=== PATIENT | male | born 1955 | race Caucasian/White ===

== ENCOUNTER 2018-06-25 08:39 | Inpatient (IN) | payer MEDICARE, BC ==
[~2018-06-25] VITALS: Ht 188 cm; Wt 109.8 kg
[2018-06-25] VITALS (14 sets, daily range): BP systolic 123–152; BP diastolic 65–99
[2018-06-25] MEDS ORDERED: IV NORMAL SALINE 1000 ML BAG IV ONE (09:00)
[2018-06-25 09:13] LABS: BASOPHILS # (AUTO) 0.1 K/uL (0.0-8.0); BASOPHILS % (AUTO) 0.6 % (0.0-2.0); EOSINOPHILS # (AUTO) 0.2 K/uL (0.0-0.7); EOSINOPHILS % (AUTO) 2.4 % (0.0-7.0); HEMATOCRIT 41.5 % (36.7-47.1); HEMOGLOBIN 13.6 g/dL (12.5-16.3); LYMPHOCYTES # (AUTO) 0.6 K/uL (20.0-40.0); LYMPHOCYTES % (AUTO) 7.1 % (20.5-51.5); MEAN CORPUSCULAR HEMOGLOBIN 29.8 uug (23.8-33.4); MEAN CORPUSCULAR HGB CONC 33 g/dL (32.5-36.3); MEAN CORPUSCULAR VOLUME 91.2 fL (73.0-96.2); MONOCYTES % (AUTO) 11.3 % (0.0-11.0); NEUTROPHILS # (AUTO) 7.2 K/uL (1.8-8.9); NEUTROPHILS % (AUTO) 78.6 % (38.5-71.5); PLATELET COUNT (AUTO) 337 K/uL (152-348); RED BLOOD CELL COUNT(AUTO) 4.55 MIL/uL (4.06-5.63); WHITE BLOOD COUNT (AUTO) 9.1 K/uL (3.6-10.2)
[2018-06-25 09:28] LABS: ALANINE AMINOTRANSFERASE 34 U/L (16-63); ALKALINE PHOSPHATASE 86 U/L (50-136); ASPARTATE AMINOTRANSFERASE 8 U/L (15-37); BILIRUBIN,DIRECT 0.2 mg/dL (0.0-0.2); BILIRUBIN,TOTAL 0.6 mg/dL (0.2-1.0); CARBON DIOXIDE 16 mmol/L (21-32); CHLORIDE 102 mmol/L (98-107); CREATININE 0.5 mg/dL (0.6-1.3); GLUCOSE 127 mg/dL (74-106); LIPASE 892 U/L (73-393); POTASSIUM 3.5 mmol/L (3.5-5.1); TOTAL PROTEIN, SERUM 7.3 g/dL (6.4-8.2); UREA NITROGEN, BLOOD 12 mg/dL (7-18)
[2018-06-25] MEDS ORDERED: DILTIAZEM HCL 25 MG IV IV ONE (09:30)
[2018-06-25] MEDS ORDERED: KETOROLAC TROMETHAMINE 30 MG INJ IVP ONE (09:30)
[2018-06-25] MEDS ORDERED: KETOROLAC TROMETHAMINE 30 MG INJ ONE (09:34)
[2018-06-25] MEDS ORDERED: DILTIAZEM HCL 25 MG IV ONE (09:35)
[2018-06-25 09:39] LABS: *BILIRUBIN,URIN NEGATIVE (NEGATIVE); *CLARITY,URINE CLEAR (CLEAR); *COLOR,URINE YELLOW (YELLOW); *KETONES,URINE 4+ (NEGATIVE); *UROBILINOGEN,URINE 0.2 E.U./dl (NORMAL); LEUKOCYTE ESTERASE ,URINE NEGATIVE (NEGATIVE); NITRITE, URINE NEGATIVE (NEGATIVE); PH,URINE 5.5 (5.0-8.0); UGLUCOSE 2+ (NEGATIVE)
[2018-06-25 09:40] LABS: *BLOOD, URINE TRACE (NEGATIVE)
[2018-06-25] MEDS ORDERED: DILTIAZEM HCL IV 125 MG in IV DEXTROSE 5% 100 ML IV ONE (09:45)
[2018-06-25 09:47] LABS: BACTERIA,URINE NONE SEEN /HPF (NONE SEEN); RBC,URINE 0-3 /HPF (0-3); SQUAMOUS EPITHELIAL CELL,UR NONE SEEN /HPF (NONE SEEN); WBC,URINE 0-3 /HPF (0-3)
[2018-06-25] MEDS ORDERED: LEVE500T20 PO (09:51)
[2018-06-25] MEDS ORDERED: AMLO1CAP5 PO (09:51)
[2018-06-25] MEDS ORDERED: FOLI1TAB16 PO (09:51)
[2018-06-25] MEDS ORDERED: EMPA25TA PO (09:51)
[2018-06-25] MEDS ORDERED: AZAT50TA PO (09:51)
[2018-06-25] MEDS ORDERED: LIDOCAINE PATCH TP (09:51)
[2018-06-25] MEDS ORDERED: PRED2.5T PO (09:51)
[2018-06-25] MEDS ORDERED: SITA100T PO (09:51)
[2018-06-25] MEDS ORDERED: SUMA100T16 PO (09:51)
[2018-06-25] MEDS ORDERED: METH25VI11 SUBCUT (09:51)
[2018-06-25] MEDS ORDERED: METF-442 PO (09:51)
--- NOTE | 2018-06-25 10:05 | NUR ---
titrated the pt cardizem gradually to 10mg/hr, pt convereted to sinus rhythm, at rate of 94.
[2018-06-25] MEDS ORDERED: HYDROMORPHONE 1 MG/1 ML DISP.SYRIN ONE (10:09)
[2018-06-25] MEDS ORDERED: HYDROMORPHONE 1 MG/1 ML DISP.SYRIN IV ONE (10:15)
[2018-06-25] MEDS ORDERED: ONDANSETRON IV *ER 4 MG/2 ML VIAL IV ONE (10:15)
--- NOTE | 2018-06-25 11:05 | NUR ---
[facility] traqamar provided per pt request and md soto
--- NOTE | 2018-06-25 11:18 | NUR ---
pt transfered to floor in stable condition.
--- NOTE | 2018-06-25 11:30 | NUR ---
SB[facility] REPORT RECEIVED FROM [facility], 62 yr old male admitted to ccu for cardiac arrhythmia, was in rapid atrial fib flutter prior to an out patient procedure in a surgical center. in ED patient was given cardizem iv bolus and was started on cardizem drip. patient was converted to SR at 10 mg/hr cardizem drip. too [facility] bed 1 at 1130.
--- NOTE | 2018-06-25 12:00 | NUR ---
call to dr javon pang admission orders and c/o headache and need for med recon Addendum: 06/25/18 at 1524 by BRIANNA THAYER RN Amended: Links added. Addendum: 06/25/18 at 1649 by BRIANNA THAYER RN duplicated entry
[2018-06-25] MEDS ORDERED: DILTIAZEM HCL IV 125 MG in IV DEXTROSE 5% 100 ML IV PRN (12:30)
[2018-06-25] MEDS ORDERED: ONDANSETRON 4 MG/2 ML VIAL IV PRN (13:30)
[2018-06-25] MEDS ORDERED: Z GUARD REMEDY PASTE 57 GM TUBE TOP PRN (13:30)
[2018-06-25] MEDS: IV NS 1000 ML 1,000 ML IV PRN ×2 (13:53→23:58)
[2018-06-25] MEDS: ACETAMINOPHEN 325 MG TABLET PO PRN (13:53)
--- NOTE | 2018-06-25 14:00 | NUR ---
medicated for headache and nausea. IV fluid started at 100 ml/hr NS. cardizem continued at 10mg/hr. patient c/o tylenol does not work for his heache. another call placed for DrTim re headache and need for bipap at night. orders received. Addendum: 06/25/18 at 1543 by BRIANNA THAYER RN Amended: Links added. Addendum: 06/25/18 at 1545 by BRIANNA THAYER RN Amended: Links added. Addendum: 06/25/18 at 1547 by BRIANNA THAYER RN Amended: Links added. Addendum: 06/25/18 at 1550 by BRIANNA THAYER RN Amended: Links added.
[2018-06-25] MEDS: ENOXAPARIN SODIUM 40 MG/0.4 ML DISP.SYRIN SQ SCH (14:04)
[2018-06-25] MEDS ORDERED: HYDROCODONE/APAP 10-325 MG TABLET PO PRN (14:30)
[2018-06-25] MEDS ORDERED: DEXTROSE 50% 50 ML DISP.SYRIN IV PRN (14:30)
[2018-06-25] MEDS: BLOOD SUGAR DIAGNOSTIC 1 EACH STRIP VI SCH ×3 (14:39→21:04)
--- NOTE | 2018-06-25 14:40 | NUR ---
vitaliy done bs 142, covered with 2 units humulin R SQ Addendum: 06/25/18 at 1545 by BRIANNA THAYER RN Amended: Yaz added. Addendum: 06/25/18 at 1547 by BRIANNA THAYER RN Amended: Links added. Addendum: 06/25/18 at 1550 by BRIANNA THAYER RN Amended: Links added.
--- NOTE | 2018-06-25 14:45 | NUR ---
medicated with norco as ordered. patient also has ice packs to relieve head aches. so far pain still not subsided. Addendum: 06/25/18 at 1547 by BRIANNA THAYER RN Amended: Links added. Addendum: 06/25/18 at 1550 by BRIANNA THAYER RN Amended: Links added.
[2018-06-25] MEDS: INSULIN REGULAR, HUMAN 300 UNIT/3 ML VIAL SQ PRN ×3 (15:02→21:05)
--- NOTE | 2018-06-25 15:15 | NUR ---
SBAR REPORT RECEIVED FROM [facility], 62 yr old male admitted to ccu for cardiac arrhythmia, was in rapid atrial fib flutter prior to an out patient procedure in a surgical center. in ED patient was given cardizem iv bolus and was started on cardizem drip. patient was converted to SR at 10 mg/hr cardizem drip. too [facility] bed 1 at 1130. Addendum: 06/25/18 at 1516 by BRIANNA THAYER RN Amended: Links added.
[2018-06-25] MEDS ORDERED: BENAZEPRIL HCL 10 MG TABLET PO PRN (15:45)
--- NOTE | 2018-06-25 15:50 | NUR ---
seen by dr javon james. will dc edgardo, rx belongs to son who has epilepsy. patient checked for head redness and rashes??? will observe for now. also got order for benazepril prn times one for sbp>150 Addendum: 06/25/18 at 1550 by BRIANNA THAYER RN Amended: Links added.
[2018-06-25] MEDS: ASPIRIN/ACETAMINOPHEN/CAFFEINE TABLET PO PRN (16:04)
--- NOTE | 2018-06-25 16:10 | NUR ---
medicated for headache scale 09/26 Addendum: 06/25/18 at 1610 by BRIANNA THAYER RN Amended: Yaz added. Addendum: 06/25/18 at 1610 by BRIANNA THAYER RN Amended: Yaz chadwick.
--- NOTE | 2018-06-25 16:10 | NUR ---
medicated for headache scale 09/26 Addendum: 06/25/18 at 1620 by BRIANNA THAYER RN Amended: Yaz added. Addendum: 06/25/18 at 1620 by BRINANA THAYER RN Amended: Yaz added. Addendum: 06/25/18 at 1649 by BRIANNA THAYER RN duplicated entry
--- NOTE | 2018-06-25 16:51 | NUR ---
call placed to dr erika pang persisitent headache not relieved by previous pain rx Addendum: 06/25/18 at 1651 by BRIANNA THAYER RN Amended: Links added.
[2018-06-25] MEDS ORDERED: LEVETIRACETAM 500 MG TABLET PO SCH (17:00)
--- NOTE | 2018-06-25 17:11 | NUR ---
vitaliy 153, covered with 2 units humulin r SQ Addendum: 06/25/18 at 1711 by BRIANNA THAYER RN Amended: Links added.
[2018-06-25] MEDS ORDERED: SUMATRIPTAN SUCCINATE 50 MG TABLET PO ONE ×2 (17:30→20:30)
--- NOTE | 2018-06-25 18:02 | NUR ---
imitrex given po for severe headache Addendum: 06/25/18 at 1802 by BRIANNA THAYER RN Amended: Yaz added. Addendum: 06/25/18 at 1813 by BRIANNA THAYER RN Amended: Yaz chadwick.
--- NOTE | 2018-06-25 18:13 | NUR ---
medicated fos sbp >150 Addendum: 06/25/18 at 1813 by BRIANNA THAYER RN Amended: Links added.
--- NOTE | 2018-06-25 18:20 | NUR ---
seen by dr stahl. talked to patient and pt's re condition Addendum: 06/25/18 at 1820 by BRIANNA THAYER RN Amended: Links added.
--- NOTE | 2018-06-25 19:30 | NUR ---
rounds made patient on cardizem drip at 10 mg/hr ,on the heart monitor SR 72 TO 75,will continue to monitor v/s .
--- NOTE | 2018-06-25 20:00 | NUR ---
assessment at 06/25/2018 at 2000 done by MARIAM CHIANG IN COMING RN AT [facility] . Addendum: 06/26/18 at 0012 by ROSALINE CHIANG RN Amended: Links added.
--- NOTE | 2018-06-25 20:00 | NUR ---
rounds name patient in bed AAOX4/MAEX4,tolerating 02 nasal cannula at 2 l min.saturation 95% rr 17 no respiratory distress noted and verbalized .patient denies pain or headache at this time day rn gave him Imitrex po 100 mg at about 1758,as per patient he usually takes another Imitrex 2 to 3 hours after extra dose ,advised i will call md . continue to monitor v/s and levels of comfort . Addendum: 06/25/18 at 3155 by ROSALINE CHIANG RN NOTE WRITTEN BY:ROSALINE CHIANG SHIFT .
--- NOTE | 2018-06-25 21:30 | NUR ---
patient called and wants something to eat given tuna sandwish and markel cracker with peanut butter and milk .able to feed self .
[2018-06-25] MEDS: DILTIAZEM HCL CD 120 MG CAP.SR.24H PO SCH (21:39)
--- NOTE | 2018-06-25 21:45 | NUR ---
respiratory therapist at bedside with the bipap machine explained to patient about the bipap , asper patient his using cpap at night ,called [facility] to get order for cpap instead of bipap.
--- NOTE | 2018-06-25 22:00 | NUR ---
re Valverde called back obtained order for cpap prn during the night , informed patient and respiratory therapist .
--- NOTE | 2018-06-25 22:30 | NUR ---
as per patient and respiratory therapist patient unable to tolerate cpap ,will use the nasal cannula 2 L/MIN and will monitor saturation as long as saturation > or equal to 92%.
--- NOTE | 2018-06-25 23:15 | NUR ---
patient wants to do no.2 commode provided ,assisted oob ,advised to call when done ,call light placed with in reach ,patient said its a false alarm instead only voided about 650 ml of yellowish urine,back to bed .
[2018-06-26] VITALS (14 sets, daily range): BP systolic 110–151; BP diastolic 60–88
[2018-06-26 05:25] LABS: BASOPHILS # (AUTO) 0.1 K/uL (0.0-8.0); EOSINOPHILS # (AUTO) 0.4 K/uL (0.0-0.7); EOSINOPHILS % (AUTO) 6.6 % (0.0-7.0); HEMATOCRIT 36.8 % (36.7-47.1); HEMOGLOBIN 12.4 g/dL (12.5-16.3); LYMPHOCYTES # (AUTO) 1.1 K/uL (20.0-40.0); LYMPHOCYTES % (AUTO) 15.8 % (20.5-51.5); MEAN CORPUSCULAR HEMOGLOBIN 30.1 uug (23.8-33.4); MEAN CORPUSCULAR HGB CONC 34 g/dL (32.5-36.3); MEAN CORPUSCULAR VOLUME 89.4 fL (73.0-96.2); MONOCYTES # (AUTO) 0.9 K/uL (2.0-10.0); MONOCYTES % (AUTO) 12.9 % (0.0-11.0); NEUTROPHILS # (AUTO) 4.4 K/uL (1.8-8.9); NEUTROPHILS % (AUTO) 63.7 % (38.5-71.5); PLATELET COUNT (AUTO) 337 K/uL (152-348); RED BLOOD CELL COUNT(AUTO) 4.11 MIL/uL (4.06-5.63); WHITE BLOOD COUNT (AUTO) 6.8 K/uL (3.6-10.2)
[2018-06-26 05:43] LABS: THYROID STIMULATING HORMONE 1.426 mIU/mL (0.358-3.740)
[2018-06-26 06:40] LABS: BILIRUBIN,TOTAL 0.2 mg/dL (0.2-1.0); CREATININE 0.7 mg/dL (0.6-1.3); MAGNESIUM 1.8 mg/dL (1.8-2.4); PHOSPHOROUS 2.5 mg/dL (2.5-4.9); POTASSIUM 3.4 mmol/L (3.5-5.1); TOTAL PROTEIN, SERUM 6.2 g/dL (6.4-8.2)
[2018-06-26] MEDS: BLOOD SUGAR DIAGNOSTIC 1 EACH STRIP VI SCH ×4 (08:09→20:24)
[2018-06-26] MEDS: BENAZEPRIL HCL 10 MG TABLET PO SCH (08:16)
[2018-06-26] MEDS: FOLIC ACID 1 MG TABLET PO SCH (08:16)
[2018-06-26] MEDS: DILTIAZEM HCL CD 120 MG CAP.SR.24H PO SCH (08:16)
[2018-06-26] MEDS: predniSONE 1 MG TABLET PO SCH (08:17)
--- NOTE | 2018-06-26 08:20 | NUR ---
Attending physician Dr. Gray in the unit to examine patient,. full report given orders received see orders hx. Orders to down-grade pt. to the med-surge unit. Broadcast Field Supervisor called to be notified. also a call to the medical surgical floor awaiting for bed-assignment.
[2018-06-26] MEDS: AZATHIOPRINE 50 MG TABLET PO SCH (08:21)
[2018-06-26] MEDS: AMLODIPINE 5 MG TABLET PO SCH (08:25)
[2018-06-26] MEDS: INSULIN REGULAR, HUMAN 300 UNIT/3 ML VIAL SQ PRN ×3 (08:27→16:13)
[2018-06-26] MEDS ORDERED: POTASSIUM CHLORIDE 20 MEQ TAB.PRT.SR PO ONE (08:30)
[2018-06-26] MEDS ORDERED: predniSONE 2.5 MG TABLET PO SCH (09:00)
[2018-06-26] MEDS: METOPROLOL TARTRATE 25 MG TABLET PO SCH ×2 (09:19→20:21)
[2018-06-26] MEDS: ENOXAPARIN SODIUM 40 MG/0.4 ML DISP.SYRIN SQ SCH (12:32)
[2018-06-26] MEDS: ASPIRIN/ACETAMINOPHEN/CAFFEINE TABLET PO PRN ×2 (12:47→21:58)
--- NOTE | 2018-06-26 13:46 | NUR ---
Cardiology services, in the unit to examine pt. informed of medical clearance needed for discharge as stated by attending physician Dr. Jean this morning.
[2018-06-26] MEDS ORDERED: PANTOPRAZOLE SODIUM 40 MG TABLET.DR PO ONE (16:00)
--- NOTE | 2018-06-26 16:15 | NUR ---
appraisal manager Stephanie Vora in the unit and at this time telephone orders from both Dr. Jean for metoprolol 25mg po BID #60 refill 5. and orders for Xarelto 20mg po daily #30 refill 11. with instructions to resume xarelto post epidural injection. Also telephone orders stating that patient has cardiac clearance for epidural injection from Dr. Ritchie Tellez transactional paralegal. TOR orders faxed by employment evaluator/case manager to both pt's pharmacy of choice and to clinic where epidural injection will take place.
[2018-06-26] MEDS ORDERED: METO25TA6 PO (16:18)
[2018-06-26] MEDS ORDERED: RIVA20TA PO (16:18)
--- NOTE | 2018-06-26 16:40 | NUR ---
At this time A call to attending physician Dr. Jean to notify him of pt's fever of 101.1 rectally, shivering and malaise. Orders to hold dcd home and follow up per protocol. Blood cultures X2 15 min. apart and also orders for stool gramstain and wbc received.
[2018-06-26] MEDS: ACETAMINOPHEN 325 MG TABLET PO PRN (17:19)
--- NOTE | 2018-06-26 17:44 | NUR ---
Telephone report given to Clemente Eric. full head to toe report given nurse was also informed of pending stool collection. IV line to right hand patent. pt. will be taken up via wheel chair. Pt's at bedside.
--- NOTE | 2018-06-26 18:00 | NUR ---
Received this transfer from CCU to [facility] by wheelchair. Vital signs taken and recorded. Noted temp 99.2 F, no shivers, will monitor. Awake, alert, oriented x 4. Dinner served.
--- NOTE | 2018-06-26 19:39 | NUR ---
Rec'd pt in bed awake, A&Ox4. at bedside. No s/s of acute distress noted. Denies pain at this time. Monitored for elevated temp. Last recorded temp 99.2 at 1822 and was given Tylenol PO. Will recheck temp. RFA 22g heplock in place. Pending stool for wbc and GS. Pt aware. Discussed plan of care with pt. All needs met at this time. All safety precautions in place. Will continue to monitor for change.
--- NOTE | 2018-06-26 20:08 | NUR ---
Noted pt with oral temp of 100.6. Rec'd Tylenol 650mg PO at 1719. Cooling measures in place. Denies chills. Relayed to Dr. Hong with no new orders at this time and to continue cooling measures. Pt made aware. All safety precautions in place. Will continue to monitor for change.
[2018-06-26] MEDS: INSULIN REGULAR, HUMAN 300 UNITS/3 ML VIAL SQ PRN (20:27)
[2018-06-27] MEDS: ACETAMINOPHEN 325 MG TABLET PO PRN ×2 (01:22→14:57)
[2018-06-27 04:00] VITALS: BP 133/78
[2018-06-27] MEDS: ASPIRIN/ACETAMINOPHEN/CAFFEINE TABLET PO PRN ×2 (04:22→17:37)
--- NOTE | 2018-06-27 04:27 | NUR ---
Pt c/o 09/26 headache. Requested for Excedrin PO. Will monitor for effectiveness. Temp at 98.2 orally. All safety precautions in place. Will continue to monitor.
[2018-06-27] MEDS: BLOOD SUGAR DIAGNOSTIC 1 EACH STRIP VI SCH ×4 (07:28→20:39)
[2018-06-27] MEDS: INSULIN REGULAR, HUMAN 300 UNIT/3 ML VIAL SQ PRN ×3 (07:54→17:35)
[2018-06-27 07:58] VITALS: BP 125/84
[2018-06-27] MEDS: predniSONE 1 MG TABLET PO SCH (09:21)
[2018-06-27] MEDS: AMLODIPINE 5 MG TABLET PO SCH (09:22)
[2018-06-27] MEDS: FOLIC ACID 1 MG TABLET PO SCH (09:23)
[2018-06-27] MEDS: METOPROLOL TARTRATE 25 MG TABLET PO SCH ×2 (09:23→20:41)
[2018-06-27] MEDS: BENAZEPRIL HCL 10 MG TABLET PO SCH (09:24)
[2018-06-27] MEDS: AZATHIOPRINE 50 MG TABLET PO SCH (10:12)
[2018-06-27 10:57] VITALS: BP 104/53
[2018-06-27] MEDS: ENOXAPARIN SODIUM 40 MG/0.4 ML DISP.SYRIN SQ SCH (14:13)
[2018-06-27 15:19] VITALS: BP 113/89
--- NOTE | 2018-06-27 18:29 | NUR ---
Pt stated feeling feverish but afebrile. Requested for Excedrin and given. Pt is concern regarding lipase on admission, notified Dr Jean. Repeat lipase done and ultrasound of gallbladder and pancreas received but pancreas ultrasound unable to be done due to pt not NPO. Notified Dr Jean. Pt HR 142, rechecked 111, EKG done as ordered and showed ST 110. Pt is concern about his medication Methotrexate, notified Dr Jean and stated to continue to hold. at bedside. Blood sugars monitored and sliding scale given as ordered. Bed low and locked. call light within reached. will cont to monitor.
--- NOTE | 2018-06-27 20:00 | NUR ---
RECEIVED PATIENT AWAKE IN BED WITH AT BEDSIDE. PATIENT IS A/O X4. DENIES PAIN OR DISCOMFORT. VSS. PATIENT WAITING FOR DR. CATHERINE TO COME BY TO ASSESS. VS WNL. CALL LIGHT IN REACH. ALL NEEDS ATTENDED. WILL CONTINUE TO MONITOR AND ASSESS.
[2018-06-27 20:24] VITALS: BP 117/56
[2018-06-27] MEDS: INSULIN REGULAR, HUMAN 300 UNITS/3 ML VIAL SQ PRN (20:39)
[2018-06-27] MEDS: IV 1/2NS 1000 ML 1,000 ML IV PRN (21:02)
--- NOTE | 2018-06-28 00:15 | NUR ---
PATIENT NPO ORDERED FOR CT SCAN WITH CONTRAST IN AM.
[2018-06-28 06:20] VITALS: BP 125/75
[2018-06-28] MEDS ORDERED: SWABABLE VALVE TRANSFER SET EA MC ONE (07:00)
[2018-06-28] MEDS ORDERED: IV NORMAL SALINE 250 ML IV ONE (07:00)
[2018-06-28] MEDS ORDERED: IOHEXOL 300MG/ML 100 ML INFUS..BTL ONE (07:00)
[2018-06-28] MEDS: BLOOD SUGAR DIAGNOSTIC 1 EACH STRIP VI SCH ×4 (07:06→20:49)
--- NOTE | 2018-06-28 07:10 | NUR ---
RECEIVED PATIENT, SITTING IN THE BEDSIDE CHAIR, NO DISTRESS NOTED,IV RUNNING NS 100 CC/HR, ALL SAFETY AND COMFORT MEASURES ARE PROVIDED, GOING TO CT SCAN AT 8:00 AM, WILL CONTINUE TO MONITOR
[2018-06-28] MEDS: FOLIC ACID 1 MG TABLET PO SCH (08:18)
[2018-06-28] MEDS: METOPROLOL TARTRATE 25 MG TABLET PO SCH ×2 (08:21→20:44)
[2018-06-28] MEDS: AMLODIPINE 5 MG TABLET PO SCH (08:22)
[2018-06-28] MEDS: predniSONE 1 MG TABLET PO SCH (08:22)
[2018-06-28] MEDS: BENAZEPRIL HCL 10 MG TABLET PO SCH (08:25)
[2018-06-28] MEDS: INSULIN REGULAR, HUMAN 300 UNIT/3 ML VIAL SQ PRN ×3 (08:27→16:59)
[2018-06-28] MEDS: AZATHIOPRINE 50 MG TABLET PO SCH (08:29)
--- NOTE | 2018-06-28 08:30 | NUR ---
PATIENT RETURNED FROM CT ABD AT THIS TIME. ABLE TO EAT. STABLE CONDITION. NO SIGNS OF DISTRESS. VITAL SIGNS STABLE. NO COMPLAINTS OF PAIN. IVF RUNNING. AMBULATORY, SAFETY MEASURES IMPLEMENTED.
[2018-06-28] MEDS: IV 1/2NS 1000 ML 1,000 ML IV PRN ×2 (09:39→18:04)
[2018-06-28 11:32] VITALS: BP 116/68
[2018-06-28] MEDS: ENOXAPARIN SODIUM 40 MG/0.4 ML DISP.SYRIN SQ SCH (12:34)
[2018-06-28] MEDS: ACETAMINOPHEN 325 MG TABLET PO PRN ×2 (13:23→18:30)
--- NOTE | 2018-06-28 15:14 | NUR ---
INCREASED TEMPERATURE 100.7 - TYLENOL 650 MG PO ADMINISTERED 110 MINUTES. COOLING MEASURES PROVIDED. WILL RE-CHECK TEMPERATURE.
[2018-06-28 15:25] VITALS: BP 122/72
[2018-06-28] MEDS: ASPIRIN/ACETAMINOPHEN/CAFFEINE TABLET PO PRN (15:52)
--- NOTE | 2018-06-28 15:56 | NUR ---
TEMPERATURE RE-CHECKED: 98.5
--- NOTE | 2018-06-28 17:43 | NUR ---
PATIENT RESTING COMFORTABLY IN BED. AFEBRILE AT THIS TIME. NO SIGNS OF DISTRESS. IVF RUNNING AT 150 CC/HR. AMBULATORY. A/OX4. BLOOD SUGAR MANAGED PER SLIDING SCALE. PAIN MANAGEMENT PROVIDED. DENIES PAIN AT THIS TIME. WILL CONTINUE TO MONITOR UNTIL END OF SHIFT. SAFETY MEASURES IMPLEMENTED. CALL LIGHT WITHIN REACH OF PATIENT.
--- NOTE | 2018-06-28 19:25 | NUR ---
RECEIVED PT AWAKE, ALERT AND ORIENTEDX4. PT SHOWS NO SIGNS OF ACUTE DISTRESS. PT IV INTACT. SAFETY AND COMFORT PROVIDED. CALL LIGHT WITHIN REACH. WILL CONTINUE TO MONITOR.
[2018-06-28 20:00] VITALS: BP 128/85
[2018-06-28] MEDS: INSULIN REGULAR, HUMAN 300 UNITS/3 ML VIAL SQ PRN (20:53)
[2018-06-29] MEDS: ACETAMINOPHEN 325 MG TABLET PO PRN ×3 (00:32→20:58)
[2018-06-29] MEDS: IV 1/2NS 1000 ML 1,000 ML IV PRN ×4 (00:52→23:02)
[2018-06-29 05:40] VITALS: BP 103/63
--- NOTE | 2018-06-29 06:09 | NUR ---
PT SLEPT THROUGHOUT THE SHIFT. GAVE COOLING MEASURES. PT SHOWS NO SIGNS OF ACUTE DISTRESS. PT IV INTACT. PRESCRIBED MEDICATION GIVEN AND PT TOLERATED IT WELL.SAFETY AND COMFORT PROVIDED. CALL LIGHT WITHIN REACH. ALL NEEDS ARE MET. WILL ENDORSE ACCORDINGLY TO INCOMING NURSE FOR CONTINUITY OF CARE.
[2018-06-29] MEDS: BLOOD SUGAR DIAGNOSTIC 1 EACH STRIP VI SCH ×4 (06:34→21:02)
--- NOTE | 2018-06-29 07:15 | NUR ---
PATIENT RECEIVED ON BED AWAKE AAOX3 NO ACUTE DISTRESS NOTED. IV ACCESS ON RIGHT WRIST #20 RUNNING 0.45% NS @ 150 CC/HR INFUSING WELL. PATIENT INDEPENDENT WITH NEEDS, AMBULATORY, BRP. COMFORT MEASURES PROVIDED. CALL LIGHT WITHIN REACH. WILL CONTINUE TO MONITOR CLSOELY.
[2018-06-29] MEDS: INSULIN REGULAR, HUMAN 300 UNIT/3 ML VIAL SQ PRN ×3 (07:52→16:42)
[2018-06-29] MEDS: predniSONE 1 MG TABLET PO SCH (08:39)
[2018-06-29] MEDS: FOLIC ACID 1 MG TABLET PO SCH (08:39)
[2018-06-29] MEDS: BENAZEPRIL HCL 10 MG TABLET PO SCH (08:40)
[2018-06-29] MEDS: METOPROLOL TARTRATE 25 MG TABLET PO SCH ×2 (08:48→20:59)
[2018-06-29] MEDS: AMLODIPINE 5 MG TABLET PO SCH (08:48)
[2018-06-29] MEDS: AZATHIOPRINE 50 MG TABLET PO SCH (08:48)
[2018-06-29 11:19] VITALS: BP 107/72
[2018-06-29] MEDS: ASPIRIN/ACETAMINOPHEN/CAFFEINE TABLET PO PRN ×2 (12:35→19:15)
[2018-06-29] MEDS: ENOXAPARIN SODIUM 40 MG/0.4 ML DISP.SYRIN SQ SCH (12:36)
[2018-06-29 15:18] VITALS: BP 110/74
--- NOTE | 2018-06-29 19:55 | NUR ---
PATIENT NOTED WITH 100.8F TEMP. APPLIED COOLING MEASURES AND ADMINISTERED EXCEDRIN, RECHECKED TEMP AFTER 30 MINS WENT DOWN TO 99.2 WILL CONTINUE TO MONITOR CLOSELY.
[2018-06-29 20:06] VITALS: BP 122/81
[2018-06-29] MEDS: INSULIN REGULAR, HUMAN 300 UNITS/3 ML VIAL SQ PRN (21:06)
--- NOTE | 2018-06-29 21:20 | NUR ---
PATIENT'S TEMPERATURE NOW DOWN TO 98.8F. WILL CONTINUE TO MONITOR CLOSELY.
--- NOTE | 2018-06-29 23:00 | NUR ---
handoff report given to
--- NOTE | 2018-06-30 04:20 | NUR ---
PATIENT A/0 X4. DISCHARGE INSTRUCTIONS AND PRESCRIPTIONS FOR PHARMACY GIVEN. IV DISCONTINUED. BELONGING ACCOUNTED FOR. PATIENT WAS PICKED UP BY . REFUSED TO TAKE WHEELCHAIR AND WALK DOWN. NO SIGNS OF RESPIRATORY DISTRESS. PATIENT IN STABLE CONDITION.
[2018-06-30 05:18] VITALS: BP 124/82
[2018-06-30] MEDS: IV 1/2NS 1000 ML 1,000 ML IV PRN (05:50)
[2018-06-30] MEDS: BLOOD SUGAR DIAGNOSTIC 1 EACH STRIP VI SCH ×2 (07:10→11:25)
--- NOTE | 2018-06-30 07:30 | NUR ---
PATIENT AAOX4. NO RESPIRATORY DISTRESS NOTED. CALL LIGHTS WITHIN REACH. BED RAIL X2. WILL CONTINUE TO MONITOR.
[2018-06-30 08:39] LABS: BASOPHILS % (AUTO) 0.7 % (0.0-2.0); EOSINOPHILS # (AUTO) 0.4 K/uL (0.0-0.7); EOSINOPHILS % (AUTO) 6.4 % (0.0-7.0); HEMATOCRIT 36.8 % (36.7-47.1); HEMOGLOBIN 12.3 g/dL (12.5-16.3); LYMPHOCYTES # (AUTO) 0.8 K/uL (20.0-40.0); LYMPHOCYTES % (AUTO) 13.4 % (20.5-51.5); MEAN CORPUSCULAR HEMOGLOBIN 29.8 uug (23.8-33.4); MEAN CORPUSCULAR HGB CONC 33 g/dL (32.5-36.3); MEAN CORPUSCULAR VOLUME 89.2 fL (73.0-96.2); MONOCYTES # (AUTO) 0.8 K/uL (2.0-10.0); MONOCYTES % (AUTO) 13.7 % (0.0-11.0); NEUTROPHILS % (AUTO) 65.8 % (38.5-71.5); PLATELET COUNT (AUTO) 349 K/uL (152-348); RED BLOOD CELL COUNT(AUTO) 4.12 MIL/uL (4.06-5.63); WHITE BLOOD COUNT (AUTO) 6.1 K/uL (3.6-10.2)
[2018-06-30 08:46] LABS: CARBON DIOXIDE 25 mmol/L (21-32); CHLORIDE 103 mmol/L (98-107); CREATININE 0.6 mg/dL (0.6-1.3); GLUCOSE 188 mg/dL (74-106); POTASSIUM 3.5 mmol/L (3.5-5.1); UREA NITROGEN, BLOOD 6 mg/dL (7-18)
[2018-06-30 08:59] LABS: ALANINE AMINOTRANSFERASE 42 U/L (16-63); ALKALINE PHOSPHATASE 65 U/L (50-136); ASPARTATE AMINOTRANSFERASE 13 U/L (15-37); BILIRUBIN,TOTAL 0.5 mg/dL (0.2-1.0); LIPASE 843 U/L (73-393); TOTAL PROTEIN, SERUM 6.9 g/dL (6.4-8.2)
[2018-06-30 09:00] VITALS: BP 138/87
[2018-06-30] MEDS: FOLIC ACID 1 MG TABLET PO SCH (09:11)
[2018-06-30] MEDS: AMLODIPINE 5 MG TABLET PO SCH (09:15)
[2018-06-30] MEDS: BENAZEPRIL HCL 10 MG TABLET PO SCH (09:15)
[2018-06-30] MEDS: predniSONE 1 MG TABLET PO SCH (09:16)
[2018-06-30] MEDS: METOPROLOL TARTRATE 25 MG TABLET PO SCH (09:16)
[2018-06-30] MEDS: AZATHIOPRINE 50 MG TABLET PO SCH (09:18)
[2018-06-30 11:06] VITALS: BP 117/78
[2018-06-30] MEDS: INSULIN REGULAR, HUMAN 300 UNIT/3 ML VIAL SQ PRN (11:28)
[2018-06-30] MEDS: ENOXAPARIN SODIUM 40 MG/0.4 ML DISP.SYRIN SQ SCH (14:34)
[2018-06-30 15:18] VITALS: BP 122/79
== END 2018-06-30 16:20 | disposition home or self-care (01) | DRG 308 ==
LOC: ER 08:39 → CCU 10:57 → MEDSURG3 06-26 18:10
PROVIDERS: ADMIT Nurse Practitioner Acute Care; ATTEND Nurse Practitioner Acute Care
PROC: 3E033RZ Introduction of Antiarrhythmic into Peripheral Vein, Percutaneous Approach (ICD-10-PCS; principal; 2018-06-25)
PROC: 5A09357 Assistance with Respiratory Ventilation, Less than 24 Consecutive Hours, Continuous Positive Airway Pressure (ICD-10-PCS; 2018-06-25)
DX: I48.0 Paroxysmal atrial fibrillation (principal); K85.90 Acute pancreatitis without necrosis or infection, unspecified; D68.59 Other primary thrombophilia; E86.0 Dehydration; E87.6 Hypokalemia; E66.9 Obesity, unspecified; G89.29 Other chronic pain; Z68.31 Body mass index [BMI] 31.0-31.9, adult; M06.9 Rheumatoid arthritis, unspecified; Z79.84 Long term (current) use of oral hypoglycemic drugs; Z79.52 Long term (current) use of systemic steroids; Z87.891 Personal history of nicotine dependence; R51 Headache
CPT/HCPCS: 36415; 70030-TC; 71045; 76705; 83690; 83735; 84100; 84443; 85025; 85730; 87040; 87086; 89055; 93005; 93307; 94660; A4663; A9150; G0378; J1170; J1650; J1815; J1885; J2405; J3490; J7030; J7050; J7060; J7500; J7512; Q9967